=== PATIENT | female | born 2000 | race Caucasian/White ===

== ENCOUNTER 2023-03-05 15:05 | Outpatient (CLI) | payer OTHER, SELFPAY | END 2023-03-05 16:08 | disposition home or self-care (01) | LOC: ANHOBOP 15:55 → ANHLDR 15:56 | PROVIDERS: Visit Provider Obstetrics & Gynecology | DX: O42.92 Full-term premature rupture of membranes, unspecified as to length of time between rupture and onset of labor (principal); O36.8130 Decreased fetal movements, third trimester, not applicable or unspecified; Z3A.38 38 weeks gestation of pregnancy | CPT/HCPCS: 59025; 84112; 99199 ==

== ENCOUNTER 2023-03-13 23:32 | Inpatient (IN) | payer OTHER, SELFPAY ==
[2023-03-14] VITALS (111 sets, daily range): BP systolic 84–124; BP diastolic 32–78; PULSE 69–221; RESP 16–18; TEMP 36.4–36.9; O2SAT 94–100; BMI 34.1
[2023-03-14] MEDS: LACTATED RINGERS 1,000 ML 125 ML IV CONT ×2 (04:06→05:08)
--- NOTE | 2023-03-14 04:42 | LDADM ---
This patient, Kimmy Stratton, was admitted to Labor/Delivery/Recovery 104 on 03/13/23 at 23:32. Plans for labor, pain management and were discussed with patient. Patient/family oriented to hospital policies and general routines including ID bracelet, bed and alarms, visiting hours, pain management, procedures, bathroom and other care routines, personal items, smoking policy, room service/diet and guest tray routines, infant security routines, and visiting hours. Patient/Family are encouraged to report perceived risks to care and to ask questions if they do not understand what they are told or what they should do. See OBIX for further documentation.
[2023-03-14 04:59] LABS: Basophils Percent Auto 0.2 % (0.2-1.2); Eosinophils Absolute Auto 0.1 K/mm3 (0-0.3); Eosinophils Percent Auto 0.5 % (0-4.4); Hematocrit 33.3 % (37.0-47.0); Immature Granulocyte Absolute 0.07 K/mm3 (0.00-0.031); Immature Granulocyte Percent A 0.5 % (0-0.5); Immature Platelet Fraction Pct 6.3 % (0.9-11.2); Lymphocytes Absolute Auto 2.43 K/mm3 (0.9-3.2); Lymphocytes Percent Auto 16.5 % (18.3-44.2); Mean Corpuscular Hemoglobin 30.7 pg (26-34); Mean Platelet Volume 10.8 fl (7.4-10.4); Monocytes Percent Auto 6.9 % (2.6-8.5); Neutrophils Absolute Auto 11.1 K/mm3 (1.3-6.7); Neutrophils Percent Auto 75.4 % (45.5-73.1); Platelet Count Result 321 k/mm3 (150-375); Red Blood Count 3.58 M/mm3 (4.2-5.4); Red Cell Distribution Width 12.3 % (11.5-14.5); White Blood Count 14.7 K/mm3 (4.5-10.0)
--- NOTE | 2023-03-14 06:35 | WPDANESEPP ---
Anes - Eval Pre Procedure Procedure: labor epidural Date/Time: 03/14/23 06:35 Surgeon: jaqueline Preop Diagnosis: pain during labor Pre Op Diagnosis: Contractions Patient Data Age: 22 Gender: F Height: 1.65 m Weight: 93 kg Last Vital Signs Pulse 69 03/14/23 06:32 BP 91/42 L 03/14/23 06:32 Pulse Ox 98 03/14/23 06:32 O2 Del Method Room Air 03/14/23 03:40 Allergies Allergy/AdvReac Type Severity Reaction Status Date / Time No Known Allergies Allergy Verified 02/22/23 13:36 Home Medications Medication Instructions Recorded Confirmed Type vits no.126-ferrous fum 1 tablet PO DAILY 02/22/23 03/14/23 History 28 mg iron-folic acid 800 mcg tablet (Classic ) Laboratory Tests 03/14/23 03:44 WBC 14.7 H K/mm3 (4.5-10.0) RBC 3.58 L M/mm3 (4.2-5.4) Hgb 11.0 L g/dL (12.0-15.0) Hct 33.3 L % (37.0-47.0) MCV 93.0 fl (80-100) MCH 30.7 pg (26-34) MCHC 33.0 g/dl (32-36) RDW 12.3 % (11.5-14.5) Plt Count 321 k/mm3 (150-375) MPV 10.8 H fl (7.4-10.4) Immature Gran % (Auto) 0.5 % (0-0.5) Neut % (Auto) 75.4 H % (45.5-73.1) Lymph % (Auto) 16.5 L % (18.3-44.2) Vance % (Auto) 6.9 % (2.6-8.5) Eos % (Auto) 0.5 % (0-4.4) Baso % (Auto) 0.2 % (0.2-1.2) Lymph # (Auto) 2.43 K/mm3 (0.9-3.2) Vance # (Auto) 1.0 H K/mm3 (0.1-0.6) Eos # (Auto) 0.1 K/mm3 (0-0.3) Baso # (Auto) 0.0 K/mm3 (0.0-0.1) Abs Immat Gran (auto) 0.07 H K/mm3 (0.00-0.031) Absolute Neuts (auto) 11.1 H K/mm3 (1.3-6.7) Absolute Nucleated RBC 0.0 K/mm3 (0.0-0.012) Nucleated RBC % 0.0 % (0.0-0.2) % Immature Plt Fraction 6.3 % (0.9-11.2) RPR Pending Blood Type B Positive Antibody Screen Negative Patient hx anesthesia problems: none Family hx anesthesia problems: none Results Review: All pre-operative results and documents have been reviewed as part of the pre-operative evaluation. [facility] Family History Family History (Updated 02/22/23 @ 13:40 by Aide Garner RN) Other Unknown family medical history Social History Social History Smoking status: Former smoker Tobacco type: e-cigarettes/vaping Substance use: never Lack of Transportation: No Lack of Food: Never True Current Housing: I Have Housing Concerned About Future Housing: No Difficulty Paying Gas/Electric Bills: No Difficulty Paying for Meds: No Currently Unemployed: No Education: High School Diploma/GED Difficulty w/ Childcare or Family Care: No Spiritual care concerns: No Exam Day of Procedure 03/14/23 06:35
--- NOTE | 2023-03-14 06:50 | PM.IMHP ---
H&P: HPI History of Present Illness Date/Time: 03/14/23 06:50 Chief Complaint: Labor Narrative: a 22-year-old 1 para 0 whose last menstrual was 06/06/2022, EDC is 03/18/2023, confirmed by early ultrasound presents at 39 weeks gestation in active labor. She had negative COVID B strep in her been uncomplicated [facility] Family History Family History Other Unknown family medical history Social History Social History Smoking status: Former smoker Tobacco type: e-cigarettes/vaping Substance use: never Lack of Transportation: No Lack of Food: Never True Current Housing: I Have Housing Concerned About Future Housing: No Difficulty Paying Gas/Electric Bills: No Difficulty Paying for Meds: No Currently Unemployed: No Education: High School Diploma/GED Difficulty w/ Childcare or Family Care: No Spiritual care concerns: No Meds Home Medications and Allergies Home Medications Medication Instructions Recorded Confirmed Type vits no.126-ferrous fum 1 tablet PO DAILY 02/22/23 03/14/23 History 28 mg iron-folic acid 800 mcg tablet (Classic ) Allergies Allergy/AdvReac Type Severity Reaction Status Date / Time No Known Allergies Allergy Verified 02/22/23 13:36 Vital Signs Vital Signs - 24 hr 03/14/23 03:40 03/14/23 05:30 03/14/23 05:31 Pulse Rate 87 Blood Pressure 100/67 Pulse Oximetry 98 Oxygen Delivery Room Air 03/14/23 05:32 03/14/23 05:36 03/14/23 05:37 Pulse Rate 98 Blood Pressure 105/48 L Pulse Oximetry 97 98 Oxygen Delivery 03/14/23 05:42 03/14/23 05:46 03/14/23 05:47 Pulse Rate 86 Blood Pressure 99/52 L Pulse Oximetry 98 97 Oxygen Delivery 03/14/23 05:52 03/14/23 05:57 03/14/23 06:01 Pulse Rate 73 Blood Pressure 103/48 L Pulse Oximetry 97 96 Oxygen Delivery 03/14/23 06:02 03/14/23 06:07 03/14/23 06:12 Pulse Rate Blood Pressure Pulse Oximetry 97 98 98 Oxygen Delivery 03/14/23 06:16 03/14/23 06:17 03/14/23 06:27 Pulse Rate 100 Blood Pressure 96/43 L Pulse Oximetry 100 97 Oxygen Delivery 03/14/23 06:28 03/14/23 06:32 03/14/23 06:37 Pulse Rate 82 69 Blood Pressure 84/41 L 91/42 L Pulse Oximetry 98 100 Oxygen Delivery 03/14/23 06:42 03/14/23 06:47 Pulse Rate Blood Pressure Pulse Oximetry 100 100 Oxygen Delivery Exam Const: General: cooperative, healthy appearing and comfortable Nutritional Appearance: average body habitus Orientation/consciousness: oriented to person, oriented to place and oriented to time HENMT: Head: normal to inspection Resp: Effort & Inspection: normal respiratory effort Cardio: Rate: regular rate Rhythm: regular rhythm Heart sounds: S1 normal heart sound present and S2 normal heart sound present GI: Inspection: normal to inspection ( soft gravid uterus) : Speculum Exam - Vagina: normal appearance of the vagina Speculum Exam - Cervix: normal appearance of the cervix ( /2. AROM clear P FHTs reassuring) H&P: Results Labs Labs: Short CBC 03/14/23 Range/Units 03:44 WBC 14.7 H (4.5-10.0) K/mm3 Hgb 11.0 L (12.0-15.0) g/dL Hct 33.3 L (37.0-47.0) % Plt Count 321 (150-375) k/mm3 Assessment and Plan Assessment and plan (1) Term : Code(s): Z34.90 - Encounter for supervision of normal , unspecified, unspecified trimester Status: Acute Plan spontaneous vaginal delivery is expected. Epidural is in and working.
[2023-03-14] MEDS: OXYTOCIN 30 UNITS/NS 500 ML 30 UNITS/500 ML BAG IV CONT (07:40)
--- NOTE | 2023-03-14 11:54 | PM.OBPRVD ---
OB - Delivery Note Procedure Delivery date: 03/14/23 Induction method: None Delivery augmentation: Rupture of Membranes and Pitocin Delivery monitor: External FHT and Internal Uterine Route of delivery: Episiotomy description: None Laceration Description: Perineal - 2nd Degree Delivery repair: vicryl Specimen: No Quantitative Blood Loss (ml): 60 Anesthesia type: Epidural Disposition: Floor Baby Date of : 03/14/23 Time of : 11:34 Weeks of gestation at delivery: 39 Infant gender: Female Weight (pounds): 8 Weight (ounces): 1 presentation: vertex position: Right Occiput Anterior Placenta delivery description: Spontaneous Cord Vessel Description: 3 Vessels, Nuchal Cord and Loose score one minute: 7 score five minutes: 8
--- NOTE | 2023-03-14 11:56 | PM.DS ---
DS: Admitting Diagnosis Discharge Date 03/15/2023 Admitting Diagnosis term DS: Discharge Diagnosis Discharge Diagnosis (1) Term : Code(s): Z34.90 - Encounter for supervision of normal , unspecified, unspecified trimester Status: Acute DS: Summary Hospital Course Reason for hospitalization: labor at term Hospital Course: a 22-year-old female underwent spontaneous vaginal delivery on . Her hospital course was unremarkable. She remained afebrile. She was up, voiding without difficulty, eating regular diet, ambulating, general without complaints. Time Spent with Patient Time attestation: Total time spent providing and/or coordinating discharge services: Exam Const: General: cooperative, healthy appearing and comfortable Nutritional Appearance: average body habitus Orientation/consciousness: oriented to person, oriented to place and oriented to time HENMT: Head: normal to inspection Resp: Effort & Inspection: normal respiratory effort Cardio: Rate: regular rate Rhythm: regular rhythm Heart sounds: S1 normal heart sound present and S2 normal heart sound present GI: Inspection: normal to inspection ( Fundus firm below the umbilicus) DS: Data Data Completed and Pending Labs on day of discharge: Labs from last 24 hours 03/14/23 03:44 WBC 14.7 H RBC 3.58 L Hgb 11.0 L Hct 33.3 L MCV 93.0 MCH 30.7 MCHC 33.0 RDW 12.3 Plt Count 321 MPV 10.8 H Immature Gran % (Auto) 0.5 Neut % (Auto) 75.4 H Lymph % (Auto) 16.5 L Elbert % (Auto) 6.9 Eos % (Auto) 0.5 Baso % (Auto) 0.2 Lymph # (Auto) 2.43 Elbert # (Auto) 1.0 H Eos # (Auto) 0.1 Baso # (Auto) 0.0 Abs Immat Gran (auto) 0.07 H Absolute Neuts (auto) 11.1 H Absolute Nucleated RBC 0.0 Nucleated RBC % 0.0 % Immature Plt Fraction 6.3 RPR Pending Blood Type B Positive Antibody Screen Negative Discharge Plan Discharge Attending physician on discharge: Osmany Hill Discharging Clinician: Osmany Hill Patient Disposition: Home, Self-Care Activity: may shower, no straining and pelvic rest Diet: heart healthy Wound Care Instructions: follow printed instructions Discharge Instructions: Education: Mom and Baby Guide Given to: Mother Follow-Up: Call your delivering provider's office for an appointment to be seen in: 6 Weeks Mom and baby should come to the [facility] for the follow-up appointment. Appointment Date/Time: March 18, 2023 at 9:00 am What to expect at your follow-up visit: Blood Pressure Check Physical Assessment Call [phone] if you are unable to keep your appointment time. BREAST CARE: * Wear a snug supportive bra. * For engorgement discomfort: Breast Feeding: * Apply warm moist washcloths * Express milk as needed to relieve engorgement * Wear loose clothing * For sore nipples: * Identify correct latch-on * Apply warm moist washcloths before and after nursing * Air dry nipples after nursing * May apply Lansinoh cream to nipples EPISIOTOMY/PERINEAL CARE: * Until bleeding stops, use your samia bottle after urinating * Change your pad frequently throughout the day * You may take sitz baths several times a day (fill your bathtub with warm water and soak for 20 minutes.) Do NOT bathe in the water * No tub baths until seen by your physician - You may shower ACTIVITY: * Rest as much as possible. * Do not exercise or lift anything heavier than your baby (such as laundry or other children.) * Avoid stairs or driving as much as possible. * Do not put anything into the vagina. No douching, tampons, or sexual activity until seen by physician. NOTIFY PHYSICIAN IF YOU HAVE ANY QUESTIONS OR IF ANY OF THE FOLLOWING SYMPTOMS OCCUR: * If your vaginal area becomes red, swollen, or more painful than what you have experienced in the hospit
[2023-03-14] MEDS: OXYTOCIN 30 UNITS/NS 500 ML 30 UNITS/500 ML BAG 125 UNITS IV CONT (12:18)
[2023-03-14] MEDS: ACETAMINOPHEN 325 MG TABLET 650 MG PO (14:08)
[2023-03-14 14:18] LABS: Rapid Plasma Reagin Non-Reactive (NonReactive)
[2023-03-14] MEDS: BENZOCAINE 20% AER SPR (*SP) 56 GM CAN 1 SPRAY TOPICAL (15:00)
[2023-03-14] MEDS: WITCH HAZEL 40 PADS 1 PAD TOPICAL (15:00)
--- NOTE | 2023-03-14 15:21 | OBPPTRN ---
Patient transferred to post room # 286 via wheelchair. Support person present. Oriented to unit, room, information board, rooming in, admission packet and security measures. Patient verbalizes understanding.
[2023-03-14] MEDS: IBUPROFEN 600 MG TABLET PO (19:36)
[2023-03-15] MEDS: IBUPROFEN 600 MG TABLET PO ×3 (03:38→22:55)
[2023-03-15 03:57] LABS: Hematocrit 29.7 % (37.0-47.0); Hemoglobin 9.7 g/dL (12.0-15.0)
[2023-03-15 04:00] VITALS: BP 105/65; PULSE 66; RESP 18; TEMP 36.4; O2SAT 100
[2023-03-15 09:15] VITALS: BP 109/62; PULSE 92; RESP 16; TEMP 36.8; O2SAT 98
[2023-03-15] MEDS: MULTIVIT/MIN/PREN/FOL AC/IRON TABLET 1 TAB PO (09:15)
[2023-03-15] MEDS: POLYSACCHARIDE IRON COMPLEX 150 MG CAPSULE PO ×2 (09:15→16:30)
[2023-03-15] MEDS: DOCUSATE SODIUM 100 MG CAPSULE PO (09:15)
[2023-03-15] MEDS: WITCH HAZEL 40 PADS 1 PAD TOPICAL (09:15)
[2023-03-15] MEDS: ACETAMINOPHEN 325 MG TABLET 650 MG PO ×2 (09:15→19:38)
--- NOTE | 2023-03-15 09:25 | PM.OBPNVD ---
OB - PN: Subj Subjective Date/time seen: 03/15/23 09:25 Narrative: Pain OK. OB - PN: Obj Data Labs 03/15/23 03:47 Labs: Laboratory Results - last 24 hr 03/14/23 03/15/23 03:44 03:47 Hgb 9.7 L Hct 29.7 L RPR Non-reactive OB - PN A/P Plan Comments: A: PPD#1, doing well. P: Routine care. Exam Psych: Other: AVSS ABD soft, nontender, fundus firm EXT nontender
[2023-03-15 20:00] VITALS: BP 120/70; PULSE 70; RESP 18; TEMP 36.7; O2SAT 99
[2023-03-16] MEDS: ACETAMINOPHEN 325 MG TABLET 650 MG PO (03:26)
[2023-03-16 07:28] VITALS: BP 107/65; PULSE 60; RESP 16; TEMP 36.8
[2023-03-16] MEDS: WITCH HAZEL 40 PADS 1 PAD TOPICAL (08:06)
[2023-03-16] MEDS: POLYSACCHARIDE IRON COMPLEX 150 MG CAPSULE PO (08:06)
[2023-03-16] MEDS: BENZOCAINE 20% AER SPR (*SP) 56 GM CAN 1 SPRAY TOPICAL (08:06)
[2023-03-16] MEDS: MULTIVIT/MIN/PREN/FOL AC/IRON TABLET 1 TAB PO (08:06)
[2023-03-16] MEDS: IBUPROFEN 600 MG TABLET PO (08:07)
[2023-03-16] MEDS: DOCUSATE SODIUM 100 MG CAPSULE PO (08:07)
--- NOTE | 2023-03-16 09:33 | PM.OBPNVD ---
OB - PN: Subj Subjective Date/time seen: 03/16/23 09:33 Narrative: Pain OK. Would like to go home. OB - PN: Obj Data Labs 03/15/23 03:47 OB - PN A/P Plan Comments: A: PPD#2, doing well. P: Home to f/u 6 weeks. Exam Psych: Other: AVSS ABD soft, nontender, fundus firm EXT nontender
--- NOTE | 2023-03-16 11:57 | PC.NURSE ---
Patient viewed the discharge video Mother & Baby Care, The First Two Weeks . Patient was given the opportunity and encouraged to ask questions. Patient verbalized understanding of information shared and has been given the mother/baby guide for home reference.
[2023-03-18 09:26] VITALS: BP 117/68; PULSE 69; RESP 18; TEMP 37; O2SAT 100
== END 2023-03-16 12:57 | disposition home or self-care (01) | DRG 807 ==
LOC: ANHLDR 03-14 11:58 → ANHOB2 03-14 15:22
PROVIDERS: Obstetrics & Gynecology; Admitting Provider Obstetrics & Gynecology; Visit Provider Obstetrics & Gynecology
DX: O69.81X0 Labor and delivery complicated by cord around neck, without compression, not applicable or unspecified (principal); Z37.0 Single live birth; O70.1 Second degree perineal laceration during delivery; Z3A.39 39 weeks gestation of pregnancy; Z87.891 Personal history of nicotine dependence
CPT/HCPCS: 36415; 85014; 85018; 85025; 85055; 86592; 86850; 86900; 86901; A9270; J2590; J7120